=== PATIENT | female | born 1940 | race Caucasian/White ===

== ENCOUNTER 2023-12-22 08:02 | Emergency (ER) | payer MEDICARE, OTHER, SELFPAY ==
[2023-12-22] VITALS (31 sets, daily range): BP systolic 97–149; BP diastolic 48–102; PULSE 90–116; RESP 23–54; TEMP 38.1; O2SAT 90–96
--- NOTE | 2023-12-22 08:04 | XR_ITS ---
WS: [id number] Portable AP semiupright chest, 12/22/2023 Clinical Data: dyspnea/cough Comparison: Portable chest, 06/09/2019 Findings: There is a patchy opacity covering the left lung which probably represents a large left eff usion. There is a minimal amount of aerated lung in the medial upper left thorax. There is a shift of the heart and mediastinum from left to right. The heart size is probably normal. The right lung show s no nodules, masses or effusions. No right lung pneumonia is seen. There is no pneumothorax. Monitor leads are on the chest wall. Impression: 1. Large opacity in left lung which probably represents a large left effusion. 2. Shift of the heart and mediastinum from left to right.
--- NOTE | 2023-12-22 08:04 | ECG_ITS ---
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 Measurements Intervals [place] Rate: 116 P: 0 RI: 0 QRS: 40 QRSD: 82 T: 59 QT: 325 QTc: 453 Interpretive Statements ATRIAL FIBRILLATION WITH RAPID VENTRICULAR RESPONSE MINIMAL ST DEPRESSION [0.025+ mV ST DEPRESSION] Compared to ECG 06/06/2019 11:23:48 ST (T wave) deviation now present Sinus rhythm no longer present T-wave abnormality no longer present Electronically Signed On 12-22-2023 17:01:56 CDT by Darrel Malcolm M.D. [email or web address] [id number] f
[2023-12-22 08:16] LABS: Basophils # 0.1 10^3/uL (0.0-0.1); Basophils % 0.2 %; Hematocrit 42.1 % (36-47); Lymphocytes % 3.8 %; Mean Corpuscular HGB Conc 30.9 g/dL (30-55); Mean Corpuscular Hemoglobin 27.1 pg (27-33); Mean Corpuscular Volume 87.7 fl (85-98); Mean Platelet Volume 9.7 fL (7.4-10.4); Monocytes # 1.8 10^3/uL (0.2-0.9); Monocytes % 6.6 %; Neutrophils # 23.73 10^3/uL (1.8-7.7); Neutrophils % 88.4 %; Nucleated Red Blood Cells % 0 %; Platelet Count 393 10^3/cmm (157-399); Red Cell Distribution Width 16.5 % (12.1-15.1); White Blood Count 26.82 10^3/uL (3.29-11.43)
[2023-12-22 08:25] LABS: ABG PCO2 37.8 mmHg (35-45); ABG PH Result 7.45 (7.35-7.45); Alveolar-Arterial Oxygen Gradi 4.8 mmHg (5-10); Arterial Blood Gas Hematocrit 39.5 % (37-47); Blood Gas Allen Test Pos; Blood Gas Operator Identificat WALCI; Blood Gas Sample Site Radial, right; Blood Gas Sample Type Arterial; Carboxyhemoglobin 1.8 %THgb (0.4-20.1); HGB O2 Sat 92.6 % (95-100); Ionized Calcium Level - ABG 1.2 mmol/L (1.1-1.4); Methemoglobin 0.3 % (0.4-1.5); Oxygen Device OXY MASK; Oxygen Saturation ABG 94.5; Potassium Level - ABG 4.2 mmol/L (3.5-5.0); Total Hemoglobin 12.9 g/dL (12-16)
--- NOTE | 2023-12-22 08:29 | ED_ITS ---
HPI - SOB/Dyspnea 2 General: Chief Complaint: Shortness of Breath/Dyspnea Stated Complaint: sob,high glucose Time Seen by Provider: 12/22/23 08:03 Source: EMS Mode of arrival: EMS History of Present Illness: HPI Narrative: 83-year-old female with a history of dem entia presents from the detention she is obtunded with a fever tachycardic and tachypneic and hypoxic. She has been developing respiratory distress were uncertain how long that has been ongoing. They did report that she recently was noted to have a 6 cystitis and a culture was in process. MD elicited complaint: shortness of breath Pertinent past history: other (dementia) Associated symptoms: Reports fever(s) Review of Systems 2 General: Reports: ROS unobtainable due to mental status Const: Reports: fever(s) Physical Exam 2 Const: ORIENTATION/CONSCIOUSNESS: Yes patient obtunded HENMT: COMMON NORMALS: normocephalic, atraumatic and hearing grossly normal bilaterally HEAD & SCALP: normocephalic and atraumatic Resp: COMMON NORMALS: normal respiratory effort, No retractions, No use of accessory muscles and clear to auscultation bilaterally AUSCULTATION: clear to auscultation bilaterally Cardio: COMMON NORMALS: regular rate, regular rhythm and No murmurs present (Cardio) RATE: regular rate RHYTHM: regular rhythm GI: COMMON NORMALS: Soft to palpation and No hepatosplenomegaly present A USCULTATION: Yes normoactive bowel sounds PALPATION: Yes Soft to palpation, No Tenderness to palpation present (GI), No Guarding due to palpation present (GI) and Yes No hepatosplenomegaly present Extremity: COMMON NORMALS: normal to inspection, capillary refill normal, no clubbing, cyanosis or edema, no calf tenderness and no pedal edema Skin: COMMON NORMALS: no rashes or lesions noted GENERAL SKIN EXAM: no rashes or lesions noted Course 2 Vital Signs: Vital signs: Vital Signs Temperature 100.6 F H 12/22/23 08:04 Pulse Rate 100 12/22/23 11:30 Respiratory Rate 29 H 12/22/23 11:30 Blood Pressure 98/61 12/22/23 11:30 Pulse Oximetry 94 12/22/23 11:30 Oxygen Delivery Me thod Oxymask 12/22/23 11:00 Oxygen Flow Rate 10 12/22/23 11:00 MDM - SOB/Dyspnea Medical Decision Making Patient is septic with a very large pleural effusion suspected may actually be an empyema. Initially she was treated for sepsis. she is Do Not Recussitate and family arrived we had several long discussions with them ultimately decision was made to discharge patient back to the detention on hospice. Patient and sister and 2 nephews were present ultimately decided discharge back to the detention with hospice care. Discussed with her attending as well. Arrangements have been made. Medical Records I reviewed the patient's medical records. Lab Data I reviewed the patient's lab results. 12/22/23 07:50 12/22/23 07:50 Labs/Radiology: Laboratory Results WBC 26.82 10^3/uL (3.29-11.43) H 12/22/23 07:50 RBC 4.80 10^6/uL (3.85-5.65) 12/22/23 07:50 Hgb 13.00 g/dL (11.27-16.99) 12/22/23 07:50 Hct 42.1 % (36-47) 12/22/23 07:50 MCV 87.7 fl (85-98) 12/22/23 07:50 MCH 27.1 pg (27-33) 12/22/23 07:50 MCHC 30.9 g/dL (30-55) 12/22/23 07:50 RDW 16.5 % (12.1-15.1) H 12/22/23 07:50 Plt Count 393 10^3/cmm (157-399) 12/22/23 07:50 MPV 9.7 fL (7.4-10.4) 12/22/23 07:50 Neut % (Auto) 88.4 % 12/22/23 07:50 Lymph % (Auto) 3.8 % 12/22/23 07:50 [place] % (Auto) 6.6 % 12/22/23 07:50 Eos % (Auto) 0.0 % 12/22/23 07:50 Baso % (Auto) 0.2 % 12/22/23 07:50 Neut # (Auto) 23.73 10^3/uL (1.8-7.7) H 12/22/23 07:50 Lymph # (Auto) 1.0 10^3/uL (0.8-4.8) 12/22/23 07:50 [place] # (Auto) 1.8 10^3/uL (0.2-0.9) H 12/22/23 07:50 Eos # (Auto) 0.0 10^3/uL (0.0-0.8) 12/22/23 07:50 Baso # (Auto) 0.1 10^3/uL (0.0-0.1) 12/22/23 07:50 Nucleated RBC % (auto) 0 % 12/22/23 07:50 Nucleated RBCs # 0.0 /100WBC 12/22/23 07:50 Specimen Type Arterial 12/22/23 08:14 Sample Site Radial, right 12/22/23 08:14 ABG pH 7.45 (7.35-7.45) 12/22/23 08:14 ABG pCO2 37.8 mmHg (35-45) 12/22/23 08:14 ABG pO2 66.0 mmHg (80.0-100.0) L 12/22/23 08:14 ABG HCO3 26.0 mmol/L (22-26) 12/22/23 08:14 ABG O2 Saturation 94.5 12/22/23 08:14 ABG Base Excess 2.0 mmol/L (-2.0-2.0) 12/22/23 08:14 Geoffrey Test Pos 12/22/23 08:14 A-a O2 Gradient 4.8 mmHg (5-10) L 12/22/23 08:14 Hematocrit 39.5 % (37-47) 12/22/23 08:14 Hgb O2 Saturation 92.6 % (95-100) L 12/22/23 08:14 Carboxyhemoglobin 1.8 %THgb (0.4-20.1) 12/22/23 08:14 Methemoglobin 0.3 % (0.4-1.5) L 12/22/23 08:14 Total Hemoglobin 12.9 g/dL (12-16) 12/22/23 08:14 Sodium 136.0 mmol/L (131-143) 12/22/23 08:14 Potassium 4.2 mmol/L (3.5-5.0) 12/22/23 08:14 Glucose 340.0 mg/dL (70-115) H 12/22/23 08:14 Ionized Calcium 1.2 mmol/L (1.1-1.4) 12/22/23 08:14 O2 Delivery Device Oxy mask 12/22/23 08:14 O2 Liters/Min 10.0 % 12/22/23 08:14 Baggagemaster ID Wu 12/22/23 08:14 Sodium 135 mmol/L (136-145) L 12/22/23 07:50 Potassium 4.3 mmol/L (3.5-5.1) 12/22/23 07:50 Chloride 95 mmol/L (98-107) L 12/22/23 07:50 Carbon Dioxide 24 mmol/L (22-29) 12/22/23 07:50 Anion Gap 20.3 (5-19) H 12/22/23 07:50 BUN 26 mg/dL (8-23) H 12/22/23 07:50 Creatinine 1.2 mg/dL (0.5-0.9) H 12/22/23 07:50 GFR Calculation Not Reportable 12/22/23 07:50 Glucose 406 mg/dL (65-115) H 12/22/23 07:50 Calculated Osmolality 302 mOsm/kg (285-295) H 12/22/23 07:50 Lactic Acid 4.4 mmol/L (0.5-2.2) H* 12/22/23 07:50 Lactic Acid (Sepsis) 1.9 mmol/L (0.5-2.2) 12/22/23 10:31 Calcium 9.3 mg/dL (8.5-10.5) 12/22/23 07:50 Total Bilirubin 0.6 mg/dL (0.15-1.2) 12/22/23 07:50 AST 12 U/L (0-32) 12/22/23 07:50 ALT 18 U/L (0-33) 12/22/23 07:50 Alkaline Phosphatase 202 U/L (35-105) H 12/22/23 07:50 Total Protein 7.6 g/dL (6.6-8.7) 12/22/23 07:50 Albumin 3.0 g/dL (3.5-5.2) L 12/22/23 07:50 Globulin 4.6 g/dL (1.3-4.6) 12/22/23 07:50 Lipase 11 U/L (13-60) L 12/22/23 07:50 Urine Color Yellow (Yellow) 12/22/23 09:33 Urine Appearance Clear (CLEAR) 12/22/23 09:33 Urine pH 5 (5-7) 12/22/23 09:33 Ur Specific [place] 1.015 (1.005-1.030) 12/22/23 09:33 Urine Protein Trace (Negative) 12/22/23 09:33 Urine Glucose (UA) 2+ (Normal) H 12/22/23 09:33 Urine Ketones Negative (Negative) 12/22/23 09:33 Urine Blood 2+ (Negative) H 12/22/23 09:33 Urine Nitrate Negative (Negative) 12/22/23 09:33 Urine Bilirubin Neg (Negative) 12/22/23 09:33 Urine Urobilinogen Norm mg/dL (Negative) 12/22/23 09:33 Ur Leukocyte Esterase Negative (Negative) 12/22/23 09:33 Urine RBC 0-4 /hpf (0-2) H 12/22/23 09:33 Urine WBC Rare /hpf (0-5) 12/22/23 09:33 Ur Squamous Epith Cells 0-4 /hpf (0-5) H 12/22/23 09:33 Amorphous Sediment Not Reportable 12/22/23 09:33 Urine Bacteria 1+ /hpf (NONE) H 12/22/23 09:33 Serum Ketones Negative (Negative) 12/22/23 07:50 Coronavirus 229E (PCR) Not detected (NOT DETECT) 12/22/23 09:39 Influenza Type A Ag negative (Negative) 12/22/23 09:39 Influenza Type B Ag negative (Negative) 12/22/23 09:39 SARS-CoV-2 (PCR) Not detected (NOT DETECT) 12/22/23 09:39 All radiology interpretation(s) finalized by discharge Discharge Plan Discharge Patient Disposition: Home Clinical Impression: Septic shock, Pneumonia, Pleural effusion on left, Hospice care Condition: Stable Prescriptions: No Action furosemide 40 mg tablet 40 mg PO DAILY acetaminophen 325 mg Tablet 650 mg PO BID potassium chloride 20 mEq/15 mL liquid 10 meq PO DAILY levothyroxine 100 mcg tablet 100 mcg PO DAILY Milk of Magnesia 400 mg/5 mL Suspension 30 ml PO DAILY PRN (Reason: Constipation) bisacodyl 10 mg Suppository 10 mg AL DAILY PRN (Reason: Constipation) Debrox 6.5 % Drops 5 drp OTIC (EAR) Q12H Miralax 17 gram/dose Powder 4 g PO DAILY PRN (Reason: Constipation) ondansetron 4 mg Tablet,Disintegrating 4 mg PO Q6H PRN (Reason: Nausea And Vomiting) Ensure Liquid 1 ea PO TID Admelog SoloStar U-100 Insulin 100 unit/mL insulin pen 5 unit SUBCUT TID Discharge Orders: Discharge ED (Routine); Ordered 12/22/23 Ordered By: Mauricio Ko Referrals: Sameer Cutler DO [Primary Care Provider] - Patient Instructions: Opioid Safety, Pain Management Activity Restrictions/Additional Instructions: Discharged to detention with hospice care. Your attending physician has been informed as well. Hospice will initiate care at the detention Coding Level of Care Code ED Lance Crewmember for Jani Cooley
[2023-12-22 08:31] LABS: Ketone (Acetest) Serum Negative (Negative)
[2023-12-22 08:34] LABS: Alanine Aminotransferase 18 U/L (0-33); Alkaline Phosphatase 202 U/L (35-105); Anion Gap 20.3 (5-19); Aspartate Amino Transferase 12 U/L (0-32); Blood Urea Nitrogen 26 mg/dL (8-23); Calcium 9.3 mg/dL (8.5-10.5); Carbon Dioxide 24 mmol/L (22-29); Chloride 95 mmol/L (98-107); Globulin 4.6 g/dL (1.3-4.6); Glucose 406 mg/dL (65-115); Lipase 11 U/L (13-60); Osmolality Calculated 302 mOsm/kg (285-295); Potassium 4.3 mmol/L (3.5-5.1); Sodium 135 mmol/L (136-145); Total Bilirubin 0.6 mg/dL (0.15-1.2); Total Protein 7.6 g/dL (6.6-8.7)
[2023-12-22 08:37] LABS: Lactic Sepsis W/Reflex 4.4 mmol/L (0.5-2.2)
[2023-12-22] MEDS: piperacillin-tazobactam 3.375 GM in sodium chloride 0.9% (plus) 50 ML IV (08:46)
[2023-12-22] MEDS: vancomycin 1,000 MG in sodium chloride 0.9% 250 ML 250 MG IV (09:25)
[2023-12-22 10:01] LABS: Reflex Lactate Order REFLEX LACTIC ORDERD
[2023-12-22 10:08] LABS: Influenza A by IFA negative (Negative); Influenza B by IFA negative (Negative)
[2023-12-22 10:18] LABS: Add Urine Microscopic? YES; Bilirubin Urine Neg (Negative); Blood Urine 2+ (Negative); Glucose Urine UA 2+ (Normal); Ketones Urine Negative (Negative); Leukocyte Esterase Urine Negative (Negative); Nitrate Urine Negative (Negative); Protein Urine Trace (Negative); Specific Gravity, Urine 1.015 (1.005-1.030); Urine Appearance Clear (CLEAR); Urine Color Yellow (Yellow); Urobilinogen Urine Norm (Negative); pH Urine 5 (5-7)
[2023-12-22 10:20] LABS: Add Urine Culture? No; Bacteria Urine 1+ /hpf; RBC Urine 0-4 /hpf (0-2); Squamous Epithelial Cell Urine 0-4 /hpf (0-5); WBC Urine RARE /hpf (0-5)
[2023-12-22] MEDS: morphine 4 mg/mL SDV 1 mL 2 MG IVP ×2 (11:12→15:25)
[2023-12-22] MEDS: LORazepam 2 mg/mL INJ 10 mL MDV 1 MG IVP (11:12)
[2023-12-22 11:35] LABS: Adenovirus Not Detected (NOT DETECT); Chlamydia Pneumoniae Not Detected (NOT DETECT); Coronavirus 229E,HKU1,NL63,OC4 Not Detected (NOT DETECT); Human Metapneumovirus Not Detected (NOT DETECT); Human Rhinovirus/Enterovirus Not Detected (NOT DETECT); Influenza A Not Detected (NOT DETECT); Influenza A H1 Not Detected (NOT DETECT); Influenza A H1-2009 Not Detected (NOT DETECT); Influenza A H3 Not Detected (NOT DETECT); Influenza B Not Detected (NOT DETECT); Mycoplasma Pneumoniae Not Detected (NOT DETECT); Parainfluenza Virus Type 1 Not Detected (NOT DETECT); Parainfluenza Virus Type 2 Not Detected (NOT DETECT); Parainfluenza Virus Type 3 Not Detected (NOT DETECT); Parainfluenza Virus Type 4 Not Detected (NOT DETECT); Respiratory Syncytial Virus A Not Detected (NOT DETECT); Respiratory Syncytial Virus B Not Detected (NOT DETECT); SARS-COV-2 Not Detected (NOT DETECT)
[2023-12-22 11:36] LABS: Lactic Acid level (Lactate) 1.9 mmol/L (0.5-2.2)
--- NOTE | 2023-12-22 11:45 | DCPLANNER ---
Patients family members decided on [facility] to go back on hospice care at [facility]. I called [facility] and obtained fax number of [phone], I faxed all paperwork at [phone] am on 12/21
[2023-12-22] MEDS: LORazepam 2 mg/mL INJ 10 mL MDV IV (15:24)
== END 2023-12-22 15:35 | disposition home or self-care (01) ==
PROVIDERS: Emergency Provider Family Medicine; PCP Internal Medicine
DX: A41.9 Sepsis, unspecified organism (principal); R65.21 Severe sepsis with septic shock; J18.9 Pneumonia, unspecified organism; J90 Pleural effusion, not elsewhere classified; Z79.4 Long term (current) use of insulin; Z11.52 Encounter for screening for COVID-19
CPT/HCPCS: 36600; 51702; 71045; 80051; 80053; 81001; 82009; 82330; 82805; 83605; 83690; 85025; 87040; 87635; 87804; 93005; 96365; 96367; 96375; 96376; 99285; J2060; J2270; J2543; J3370; J7030; J7050